=== PATIENT | male | born 1990 | race Caucasian/White ===

== ENCOUNTER 2018-09-30 21:23 | Emergency (ER) | payer SELFPAY | END 2018-10-01 04:02 | disposition home or self-care (01) | LOC: FTE 21:23 | DX: R07.89 Other chest pain (principal); Z87.891 Personal history of nicotine dependence | CPT/HCPCS: 71046; 93005; 99284-25 ==

== ENCOUNTER 2018-10-04 04:41 | Emergency (ER) | payer SELFPAY | END 2018-10-04 06:35 | disposition home or self-care (01) | LOC: FTE 04:41 | DX: R07.9 Chest pain, unspecified (principal); Z87.891 Personal history of nicotine dependence | CPT/HCPCS: 93005; 99283-25 ==